=== PATIENT | male | born 1975 | race Two or more races ===

== ENCOUNTER 2020-07-27 22:27 | Inpatient (IN) | payer MEDICAID ==
[~2020-07-27] VITALS: Ht 170.2 cm; Wt 89.4 kg
[~2020-07-27 22:27] MED LIST: BENZ1TAB70 PO; DIVA-80 PO; LEVO50 PO; PALI3TAB14 PO; QUET300T5 PO; TRAZ150 PO
[2020-07-28] MEDS ORDERED: INFLUENZA VIRUS VACCINE QVS 2020-21 (6MO+)/PF 60 MCG/0.5 ML SYRINGE IM ONE (03:15)
[2020-07-28 05:05] VITALS: BP 134/95
[2020-07-28 08:10] LABS: BASOPHILS % (AUTO) 0.5 % (0.0-2.0); EOSINOPHILS % (AUTO) 1.8 % (1.0-6.0); HEMATOCRIT 40.4 % (41-53); HEMOGLOBIN 14.7 g/dL (13.5-17.5); LYMPHOCYTES # (AUTO) 3.7 K/uL (1.0-4.8); LYMPHOCYTES % (AUTO) 35.7 % (22.0-44.0); MEAN CORPUSCULAR HEMOGLOBIN 32.7 pg (26.0-34.0); MEAN CORPUSCULAR HGB CONC 36.3 G/dL (31.0-37.0); MEAN CORPUSCULAR VOLUME 90 fL (80-100); MONOCYTES # (AUTO) 0.6 K/uL (0.1-1.0); NEUTROPHILS # (AUTO) 5.7 K/uL (1.8-7.7); PLATELET COUNT (AUTO) 270 K/uL (150-450); RED BLOOD CELL COUNT(AUTO) 4.49 MIL/uL (4.50-5.90)
[2020-07-28 08:13] LABS: HEMOGLOBIN A1C 5.3 % (3.8-5.6)
[2020-07-28 08:38] LABS: ALANINE AMINOTRANSFERASE 47 U/L (12-78); ALBUMIN 3.8 g/dL (3.4-5.0); ALKALINE PHOSPHATASE 85 U/L (46-116); ANION GAP 8 mmol/L (8-16); ASPARTATE AMINOTRANSFERASE 26 U/L (15-37); BILIRUBIN,TOTAL 0.3 mg/dL (0.1-1.0); CALCIUM, TOTAL 9.1 mg/dL (8.8-10.5); CARBON DIOXIDE 29 mmol/L (22-29); CHLORIDE 103 mmol/L (98-107); CHOL/HDL RATIO 3.3 (4.2-7.3); CHOLESTEROL 156 mg/dL (131-200); CREATININE 0.99 mg/dL (0.60-1.30); FREE T4 (FREE THYROXINE) 0.99 ng/dL (0.76-1.46); GLOMERULAR FILTR. RATE CALC > 60 mL/min (>60); GLUCOSE,RANDOM 104 mg/dL (70-110); HDL CHOLESTEROL 48 mg/dL (40-60); LDL CHOL (CALC.) 62 mg/dL (0-130); POTASSIUM 4.5 mmol/L (3.5-5.1); SODIUM SERUM 140 mmol/L (136-145); THYROID STIMULATING HORMONE 2.14 uIU/mL (0.36-3.74); TOTAL PROTEIN, SERUM 6.7 g/dL (6.4-8.2); TRIGLYCERIDES 231 mg/dL (15-150); UREA NITROGEN, BLOOD 9 mg/dL (7-18)
[2020-07-28] MEDS ORDERED: IBUPROFEN 600 MG TABLET PO PRN (08:45)
[2020-07-28] MEDS ORDERED: LOPERAMIDE HCL 2 MG CAPSULE PO PRN (08:45)
[2020-07-28] MEDS ORDERED: CloNIDine HCL 0.1 MG TABLET PO PRN (08:45)
[2020-07-28] MEDS ORDERED: OMEPRAZOLE 20 MG CAPSULE PO PRN (08:45)
[2020-07-28] MEDS ORDERED: ONDANSETRON HCL 4 MG TABLET PO PRN (08:45)
[2020-07-28] MEDS ORDERED: MAG HYDROX/AL HYDROX/SIMETH ES 30 ML SUSPENSION UDCUP PO PRN (08:45)
[2020-07-28] MEDS ORDERED: DOCUSATE SODIUM 100 MG CAPSULE PO PRN (08:45)
[2020-07-28] MEDS ORDERED: ALBUTEROL SULFATE HFA 90 MCG/PUFF 8 GM INHALER IH PRN (08:45)
[2020-07-28] MEDS ORDERED: BENZOCAINE/MENTHOL LOZENGE PO PRN (08:45)
[2020-07-28] MEDS ORDERED: MAGNESIUM HYDROXIDE SUSPENSION 30 ML UDCUP PO PRN (08:45)
[2020-07-28] MEDS ORDERED: BACITRACIN 28 GM OINTMENT TP PRN (08:45)
[2020-07-28] MEDS ORDERED: PETROLATUM,WHITE 28 GM JELLY TP PRN (08:45)
[2020-07-28] MEDS ORDERED: ACETAMINOPHEN 325 MG TABLET PO PRN (08:45)
[2020-07-28] MEDS: LORazepam 2 MG TABLET PO PRN (15:05)
[2020-07-28 16:10] VITALS: BP 113/77
[2020-07-29 06:32] VITALS: BP 124/83
[2020-07-29 08:26] VITALS: BP 138/80
[2020-07-29] MEDS: HALOPERIDOL 5 MG TABLET PO PRN ×2 (10:29→21:18)
[2020-07-29] MEDS: LORazepam 2 MG TABLET PO PRN ×3 (10:29→21:18)
[2020-07-29] MEDS ORDERED: NICOTINE 14 MG/24 HOUR PATCH TD PRN (12:45)
[2020-07-29] MEDS: NICOTINE 14 MG/24 HOUR PATCH TD SCH (13:31)
[2020-07-29 16:25] VITALS: BP 118/75
[2020-07-29] MEDS: ZOLPIDEM TARTRATE 10 MG TABLET PO PRN (21:18)
[2020-07-30 00:37] VITALS: BP 126/87
[2020-07-30] MEDS: LORazepam 2 MG TABLET PO PRN ×3 (08:10→23:02)
[2020-07-30] MEDS: BENZTROPINE MESYLATE 2 MG TABLET PO SCH (08:10)
[2020-07-30 08:56] VITALS: BP 124/80
[2020-07-30] MEDS: NICOTINE 14 MG/24 HOUR PATCH TD SCH ×2 (09:00→11:36)
[2020-07-30 16:08] VITALS: BP 119/89
[2020-07-30] MEDS: QUEtiapine FUMARATE 300 MG ER TABLET PO SCH (20:19)
[2020-07-30] MEDS: ZOLPIDEM TARTRATE 10 MG TABLET PO PRN (20:22)
[2020-07-30] MEDS: TraZODone HCL 100 MG TABLET PO SCH (20:22)
[2020-07-30] MEDS: PALIPERIDONE 6 MG ER TABLET PO SCH (20:22)
[2020-07-31 03:20] VITALS: BP 132/92
[2020-07-31] MEDS: BENZTROPINE MESYLATE 2 MG TABLET PO SCH (08:09)
[2020-07-31] MEDS: LORazepam 2 MG TABLET PO PRN ×3 (08:10→20:38)
[2020-07-31] MEDS: NICOTINE 14 MG/24 HOUR PATCH TD SCH (08:10)
[2020-07-31] MEDS: HALOPERIDOL 5 MG TABLET PO PRN ×2 (08:10→15:09)
[2020-07-31 08:33] VITALS: BP 124/84
[2020-07-31 16:55] VITALS: BP 105/65
[2020-07-31] MEDS: TraZODone HCL 100 MG TABLET PO SCH (20:38)
[2020-07-31] MEDS: ZOLPIDEM TARTRATE 10 MG TABLET PO PRN (20:38)
[2020-07-31] MEDS: PALIPERIDONE 6 MG ER TABLET PO SCH (20:38)
[2020-07-31] MEDS: QUEtiapine FUMARATE 300 MG ER TABLET PO SCH (20:38)
[2020-08-01 03:56] VITALS: BP 124/70
[2020-08-01 08:09] VITALS: BP 117/79
[2020-08-01] MEDS: BENZTROPINE MESYLATE 2 MG TABLET PO SCH (09:00)
[2020-08-01] MEDS: NICOTINE 14 MG/24 HOUR PATCH TD SCH (09:00)
[2020-08-01] MEDS: HALOPERIDOL 5 MG TABLET PO PRN (13:14)
[2020-08-01] MEDS: LORazepam 2 MG TABLET PO PRN (13:14)
[2020-08-01 16:43] VITALS: BP 145/92
[2020-08-01] MEDS: QUEtiapine FUMARATE 300 MG ER TABLET PO SCH (20:44)
[2020-08-01] MEDS: TraZODone HCL 100 MG TABLET PO SCH (20:44)
[2020-08-01] MEDS: PALIPERIDONE 6 MG ER TABLET PO SCH (20:50)
[2020-08-02 05:04] VITALS: BP 129/76
[2020-08-02 08:11] VITALS: BP 111/71
[2020-08-02] MEDS: NICOTINE 14 MG/24 HOUR PATCH TD SCH (08:36)
[2020-08-02] MEDS: BENZTROPINE MESYLATE 2 MG TABLET PO SCH (08:36)
[2020-08-02] MEDS ORDERED: BENZ2TAB10 PO (14:17)
== END 2020-08-02 17:40 | disposition home or self-care (01) | DRG 750 ==
LOC: EDSTATUS 22:27 → B3A 23:43
PROVIDERS: ADMIT Psychiatry & Neurology Psychiatry; ATTEND Psychiatry & Neurology Psychiatry
DX: F20.0 Paranoid schizophrenia (principal); F10.10 Alcohol abuse, uncomplicated; Y90.9 Presence of alcohol in blood, level not specified; Z72.0 Tobacco use; F19.10 Other psychoactive substance abuse, uncomplicated; E03.9 Hypothyroidism, unspecified; E78.5 Hyperlipidemia, unspecified; F32.9 Major depressive disorder, single episode, unspecified; F41.9 Anxiety disorder, unspecified; Z88.0 Allergy status to penicillin; K59.00 Constipation, unspecified; G47.00 Insomnia, unspecified; E78.1 Pure hyperglyceridemia; Z28.21 Immunization not carried out because of patient refusal
CPT/HCPCS: 83036; 84439; 84443; 90686

== ENCOUNTER 2020-07-27 23:43 | Emergency (ER) | payer MEDICAID, OTHER ==
[~2020-07-27] VITALS: Ht 175.3 cm; Wt 90.0 kg
[2020-07-28 00:36] LABS: COVID AG,FIA SOURCE NASOPHARYNGEAL
[2020-07-28 00:47] LABS: BASOPHILS % (AUTO) 0.5 % (0.0-2.0); EOSINOPHILS % (AUTO) 1.4 % (1.0-6.0); HEMATOCRIT 42.5 % (41-53); LYMPHOCYTES # (AUTO) 3.9 K/uL (1.0-4.8); MEAN CORPUSCULAR HEMOGLOBIN 31.9 pg (26.0-34.0); MEAN CORPUSCULAR HGB CONC 35.4 G/dL (31.0-37.0); MEAN CORPUSCULAR VOLUME 90 fL (80-100); MONOCYTES # (AUTO) 0.6 K/uL (0.1-1.0); MONOCYTES % (AUTO) 5.8 % (2.0-9.0); NEUTROPHILS # (AUTO) 6.2 K/uL (1.8-7.7); NEUTROPHILS % (AUTO) 56.3 % (40.0-70.0); PLATELET COUNT (AUTO) 291 K/uL (150-450); RED CELL DISTRIBUTION WIDTH 12.9 % (11.5-14.5)
[2020-07-28 00:50] LABS: ANION GAP 9 mmol/L (8-16); CALCIUM, TOTAL 9.3 mg/dL (8.8-10.5); CARBON DIOXIDE 27 mmol/L (22-29); CHLORIDE 102 mmol/L (98-107); CREATININE 0.88 mg/dL (0.60-1.30); GLOMERULAR FILTR. RATE CALC > 60 mL/min (>60); GLUCOSE,RANDOM 111 mg/dL (70-110); POTASSIUM 3.8 mmol/L (3.5-5.1); SODIUM SERUM 138 mmol/L (136-145); UREA NITROGEN, BLOOD 9 mg/dL (7-18)
[2020-07-28 00:54] LABS: INR 0.9 (0.9-1.1); PROTHROMBIN TIME 9.7 SEC (9.4-11.6)
[2020-07-28 00:56] LABS: ALANINE AMINOTRANSFERASE 50 U/L (12-78); ALBUMIN 4.1 g/dL (3.4-5.0); ALKALINE PHOSPHATASE 95 U/L (46-116); ASPARTATE AMINOTRANSFERASE 26 U/L (15-37); BILIRUBIN,TOTAL 0.3 mg/dL (0.1-1.0); TOTAL PROTEIN, SERUM 7.6 g/dL (6.4-8.2)
[2020-07-28 01:54] LABS: AMPHET/METH SCREEN,URINE NEGATIVE (NEGATIVE); BARBITURATE SCREEN, URINE NEGATIVE (NEGATIVE); BENZODIAZEPINES SCREEN,URINE NEGATIVE (NEGATIVE); CANNABINOID SCREEN,URINE NEGATIVE (NEGATIVE); COCAINE SCREEN,URINE NEGATIVE (NEGATIVE); METHADONE SCREEN, URINE NEGATIVE (NEGATIVE); OPIATE SCREEN,URINE NEGATIVE (NEGATIVE)
[2020-07-28 02:04] LABS: PHENCYCLIDINE SCREEN,URINE NEGATIVE (NEGATIVE)
[2020-07-28 03:00] VITALS: BP 156/90
== END 2020-07-28 03:30 | disposition home or self-care (01) ==
LOC: EMS 23:44
DX: K62.5 Hemorrhage of anus and rectum (principal); Z20.828 Contact with and (suspected) exposure to other viral communicable diseases; Z87.891 Personal history of nicotine dependence
CPT/HCPCS: 36415; 80053; 80307; 82271; 85025; 85610; 87426; 99283; G0480

== ENCOUNTER 2021-06-24 23:37 | Inpatient (IN) | payer MEDICAID, OTHER ==
[~2021-06-24] VITALS: Ht 165.1 cm; Wt 82.2 kg
[~2021-06-24 23:37] MED LIST changes: +BENZ2TAB10 PO; -DIVA-80 PO; -LEVO50 PO; -TRAZ150 PO; +TRAZ150T80 PO
[2021-06-25 00:34] LABS: COVID AG,FIA SOURCE NASOPHARYNGEAL
[2021-06-25 00:35] LABS: BASOPHILS % (AUTO) 0.8 % (0.0-2.0); HEMATOCRIT 47.7 % (41-53); HEMOGLOBIN 16.2 g/dL (13.5-17.5); LYMPHOCYTES # (AUTO) 2.6 K/uL (1.0-4.8); LYMPHOCYTES % (AUTO) 21.9 % (22.0-44.0); MEAN CORPUSCULAR HEMOGLOBIN 30.8 pg (26.0-34.0); MEAN CORPUSCULAR VOLUME 91 fL (80-100); MONOCYTES # (AUTO) 0.7 K/uL (0.1-1.0); MONOCYTES % (AUTO) 5.7 % (2.0-9.0); NEUTROPHILS # (AUTO) 8.5 K/uL (1.8-7.7); NEUTROPHILS % (AUTO) 70.6 % (40.0-70.0); PLATELET COUNT (AUTO) 318 K/uL (150-450); RED BLOOD CELL COUNT(AUTO) 5.27 MIL/uL (4.50-5.90); RED CELL DISTRIBUTION WIDTH 13.4 % (11.5-14.5)
[2021-06-25 00:51] LABS: ANION GAP 7 mmol/L (8-16); CALCIUM, TOTAL 8.5 mg/dL (8.8-10.5); CARBON DIOXIDE 28 mmol/L (22-29); CHLORIDE 107 mmol/L (98-107); CREATININE 0.85 mg/dL (0.60-1.30); GLOMERULAR FILTR. RATE CALC > 60 mL/min (>60); GLUCOSE,RANDOM 106 mg/dL (70-110); POTASSIUM 4.3 mmol/L (3.5-5.1); SODIUM SERUM 142 mmol/L (136-145); UREA NITROGEN, BLOOD 20 mg/dL (7-18)
[2021-06-25 00:57] LABS: ALANINE AMINOTRANSFERASE 42 U/L (12-78); ALKALINE PHOSPHATASE 118 U/L (46-116); ASPARTATE AMINOTRANSFERASE 26 U/L (15-37); BILIRUBIN,TOTAL 0.2 mg/dL (0.1-1.0); TOTAL PROTEIN, SERUM 7.3 g/dL (6.4-8.2)
[2021-06-25 01:13] LABS: AMPHET/METH SCREEN,URINE NEGATIVE (NEGATIVE); BARBITURATE SCREEN, URINE NEGATIVE (NEGATIVE); BENZODIAZEPINES SCREEN,URINE NEGATIVE (NEGATIVE); CANNABINOID SCREEN,URINE NEGATIVE (NEGATIVE); COCAINE SCREEN,URINE NEGATIVE (NEGATIVE); METHADONE SCREEN, URINE NEGATIVE (NEGATIVE); OPIATE SCREEN,URINE NEGATIVE (NEGATIVE); PHENCYCLIDINE SCREEN,URINE NEGATIVE (NEGATIVE)
[2021-06-25] MEDS ORDERED: ZOLPIDEM TARTRATE 10 MG TABLET PO PRN (01:30)
[2021-06-25 03:18] LABS: APPEARANCE,URINE CLEAR (CLEAR); BILIRUBIN,URINE NEGATIVE (NEGATIVE); GLUCOSE, URINE (UA) NEGATIVE (NEGATIVE); KETONES,URINE NEGATIVE (NEGATIVE); LEUKOCYTE ESTERASE ,URINE NEGATIVE (NEGATIVE); NITRATE,URINE NEGATIVE (NEGATIVE); OCCULT BLOOD,URINE NEGATIVE (NEGATIVE); PROTEIN,URINE NEGATIVE (NEGATIVE); UROBILINOGEN,URINE 0.2 mg/dL (<=1.0)
[2021-06-25] MEDS: HALOPERIDOL 5 MG TABLET PO PRN (05:06)
[2021-06-25] MEDS: LORazepam 2 MG TABLET PO PRN (05:06)
[2021-06-25 20:07] VITALS: BP 150/75
[2021-06-25] MEDS ORDERED: NICOTINE 14 MG/24 HOUR PATCH TD PRN (20:15)
[2021-06-26 06:39] LABS: CHOL/HDL RATIO 3.7 (4.2-7.3); CHOLESTEROL 176 mg/dL (131-200); HDL CHOLESTEROL 47 mg/dL (40-60); LDL CHOL (CALC.) 64 mg/dL (0-130); TRIGLYCERIDES 325 mg/dL (15-150)
[2021-06-26] MEDS ORDERED: LOPERAMIDE HCL 2 MG CAPSULE PO PRN (06:45)
[2021-06-26] MEDS ORDERED: CloNIDine HCL 0.1 MG TABLET PO PRN (06:45)
[2021-06-26] MEDS ORDERED: NICOTINE 14 MG/24 HOUR PATCH TD PRN (06:45)
[2021-06-26] MEDS ORDERED: IBUPROFEN 400 MG TABLET PO PRN (06:45)
[2021-06-26] MEDS ORDERED: MAGNESIUM HYDROXIDE SUSPENSION 30 ML UDCUP PO PRN (06:45)
[2021-06-26] MEDS ORDERED: DOCUSATE SODIUM 100 MG CAPSULE PO PRN (06:45)
[2021-06-26] MEDS ORDERED: PETROLATUM,WHITE 28 GM JELLY TP PRN (06:45)
[2021-06-26] MEDS ORDERED: ONDANSETRON HCL 4 MG TABLET PO PRN (06:45)
[2021-06-26] MEDS ORDERED: MAG HYDROX/AL HYDROX/SIMETH ES 30 ML SUSPENSION UDCUP PO PRN (06:45)
[2021-06-26] MEDS ORDERED: ALBUTEROL SULFATE HFA 90 MCG/PUFF 8 GM INHALER IH PRN (06:45)
[2021-06-26] MEDS ORDERED: GuaiFENesin/D-METHORPHAN [SUGAR-FREE] 200-20MG/10 ML SYRUP UDCUP PO PRN (06:45)
[2021-06-26] MEDS ORDERED: ACETAMINOPHEN 325 MG TABLET PO PRN (06:45)
[2021-06-26] MEDS: LORazepam 2 MG TABLET PO PRN ×2 (07:43→12:43)
[2021-06-26 08:01] VITALS: BP 119/77
[2021-06-26] MEDS ORDERED: LEVO88TA7 PO (09:13)
[2021-06-26] MEDS ORDERED: CETI10TA58 PO (09:13)
[2021-06-26] MEDS ORDERED: OMEP20CA12 PO (09:13)
[2021-06-26] MEDS ORDERED: ATOR40TA71 PO (09:13)
[2021-06-26] MEDS ORDERED: LEVE500T20 PO (09:13)
[2021-06-26] MEDS: ESCITALOPRAM OXALATE 10 MG TABLET PO SCH (11:44)
[2021-06-26] MEDS: QUEtiapine FUMARATE 200 MG ER TABLET PO SCH ×2 (11:44→20:08)
[2021-06-26] MEDS: BENZTROPINE MESYLATE 2 MG TABLET PO SCH (11:44)
[2021-06-26] MEDS: HALOPERIDOL 5 MG TABLET PO PRN (16:27)
[2021-06-26] MEDS: DIVALPROEX SODIUM 500 MG ER TABLET PO SCH (16:27)
[2021-06-26] MEDS: TraZODone HCL 100 MG TABLET PO SCH (20:08)
[2021-06-27 08:01] VITALS: BP 116/66
[2021-06-27] MEDS: DIVALPROEX SODIUM 500 MG ER TABLET PO SCH ×2 (09:49→15:54)
[2021-06-27] MEDS: QUEtiapine FUMARATE 200 MG ER TABLET PO SCH ×2 (09:49→20:04)
[2021-06-27] MEDS: BENZTROPINE MESYLATE 2 MG TABLET PO SCH (09:49)
[2021-06-27] MEDS: ESCITALOPRAM OXALATE 10 MG TABLET PO SCH (09:49)
[2021-06-27] MEDS: HALOPERIDOL 5 MG TABLET PO PRN (15:54)
[2021-06-27] MEDS: LORazepam 2 MG TABLET PO PRN (16:22)
[2021-06-27 16:30] VITALS: BP 130/88
[2021-06-27 17:22] VITALS: BP 130/88
[2021-06-27] MEDS: TraZODone HCL 100 MG TABLET PO SCH (20:04)
[2021-06-28] MEDS: LORazepam 2 MG TABLET PO PRN ×2 (01:21→15:59)
[2021-06-28 08:10] VITALS: BP 126/94
[2021-06-28] MEDS: DIVALPROEX SODIUM 500 MG ER TABLET PO SCH ×2 (08:18→15:59)
[2021-06-28] MEDS: BENZTROPINE MESYLATE 2 MG TABLET PO SCH (08:18)
[2021-06-28] MEDS: QUEtiapine FUMARATE 200 MG ER TABLET PO SCH ×2 (08:18→21:28)
[2021-06-28] MEDS: ESCITALOPRAM OXALATE 10 MG TABLET PO SCH (08:18)
[2021-06-28] MEDS: HALOPERIDOL 5 MG TABLET PO PRN (15:59)
[2021-06-28 16:10] VITALS: BP 111/72
[2021-06-28] MEDS: TraZODone HCL 100 MG TABLET PO SCH (21:28)
[2021-06-29 08:00] VITALS: BP 114/76
[2021-06-29] MEDS: QUEtiapine FUMARATE 200 MG ER TABLET PO SCH ×2 (08:06→20:18)
[2021-06-29] MEDS: DIVALPROEX SODIUM 500 MG ER TABLET PO SCH ×2 (08:06→16:01)
[2021-06-29] MEDS: BENZTROPINE MESYLATE 2 MG TABLET PO SCH (08:06)
[2021-06-29] MEDS: ESCITALOPRAM OXALATE 10 MG TABLET PO SCH (08:06)
[2021-06-29] MEDS ORDERED: DIVA-80 PO (15:47)
[2021-06-29] MEDS ORDERED: ESCI-8 PO (15:48)
[2021-06-29] MEDS ORDERED: QUET200T PO ×2 (15:49)
[2021-06-29] MEDS ORDERED: LevETIRAcetam 500 MG TABLET PO SCH (17:00)
[2021-06-29] MEDS: TraZODone HCL 100 MG TABLET PO SCH (20:16)
[2021-06-30] MEDS ORDERED: LEVOTHYROXINE SODIUM 88 MCG TABLET PO SCH (08:00)
[2021-06-30] MEDS ORDERED: OMEPRAZOLE 20 MG CAPSULE PO SCH (09:00)
[2021-06-30] MEDS ORDERED: ATORVASTATIN CALCIUM 40 MG TABLET PO SCH (09:00)
== END 2021-06-29 20:53 | disposition home or self-care (01) | DRG 750 ==
LOC: EMS 23:40 → ICUN 06-25 07:24 → 3EC 06-25 19:00
PROVIDERS: ADMIT Psychiatry & Neurology Child & Adolescent Psychiatry; ATTEND Psychiatry & Neurology Child & Adolescent Psychiatry
DX: F20.9 Schizophrenia, unspecified (principal); G40.909 Epilepsy, unspecified, not intractable, without status epilepticus; E03.9 Hypothyroidism, unspecified; E78.5 Hyperlipidemia, unspecified; F17.200 Nicotine dependence, unspecified, uncomplicated; Z20.822 Contact with and (suspected) exposure to COVID-19; F41.9 Anxiety disorder, unspecified; Z88.0 Allergy status to penicillin; Z91.14 Patient's other noncompliance with medication regimen; Z79.899 Other long term (current) drug therapy
CPT/HCPCS: 80053; 80061; 81003; 85025; 99285; G0480